=== PATIENT | male | born 1975 | race Caucasian/White ===

== ENCOUNTER → 2017-11-03 | Outpatient (CLI) | payer OTHER | LOC: M.ULTRA 14:00 | DX: N63.10 Unspecified lump in the right breast, unspecified quadrant (principal); L53.9 Erythematous condition, unspecified ==

== ENCOUNTER → 2018-09-09 | Outpatient (CLI) | payer OTHER | LOC: M.RAD 14:50 | DX: M16.11 Unilateral primary osteoarthritis, right hip (principal); M47.27 Other spondylosis with radiculopathy, lumbosacral region; M53.3 Sacrococcygeal disorders, not elsewhere classified; M25.78 Osteophyte, vertebrae; M79.604 Pain in right leg ==

== ENCOUNTER → 2018-10-19 | Outpatient (CLI) | payer OTHER | LOC: M.MRI 09-17 07:30 | DX: M16.11 Unilateral primary osteoarthritis, right hip (principal); G89.29 Other chronic pain; F17.200 Nicotine dependence, unspecified, uncomplicated; Z72.89 Other problems related to lifestyle; Z79.899 Other long term (current) drug therapy; Z68.30 Body mass index [BMI] 30.0-30.9, adult ==

== ENCOUNTER 2020-03-05 06:49 | Emergency (ER) | payer OTHER ==
[~2020-03-05] VITALS: Ht 182.9 cm; Wt 97.5 kg
[~2020-03-05 06:49] MED LIST: ASPIR 8181 MG PO; CARVEDILOL3.125 MG PO; COZAAR 50 MG TA50 M1 PO; EFFIENT10 MG PO; LIPITOR 40 MG T40 M1 PO; NITROGLYCERIN0.4 MG SUBLING
[2020-03-05] MEDS ORDERED: CARVEDILOL6.25 M1 PO (07:00)
[2020-03-05] MEDS ORDERED: LIPITOR10 MG PO (07:00)
[2020-03-05 07:18] LABS: ABSOLUTE BASOPHILS 0.1 thou/uL (0.0-0.2); ABSOLUTE EOSINOPHILS 0.2 thou/uL (0.0-0.7); ABSOLUTE LYMPHOCYTES 2.2 thou/uL (0.8-5.3); ABSOLUTE MONOCYTES 0.4 thou/uL (0.0-1.2); ABSOLUTE NEUTROPHILS 3.1 thou/uL (1.6-8.1); BASOPHILS 0.9 %; EOSINOPHILS 2.7 %; HEMATOCRIT 43.7 % (42.0-52.0); HEMOGLOBIN 15.1 gm/dL (14.0-18.0); LYMPHOCYTES 37.3 %; MCH 33.6 pg (26.0-34.0); MCHC 34.5 g/dL (28.0-37.0); MCV 97.3 fL (80.0-100.0); MONOCYTES 7.1 %; MPV 7.9 fl. (7.2-11.1); NUCLEATED RBCS 0 /100WBC; PLATELET COUNT* 178 thou/uL (150-400); RBC 4.49 mil/uL (4.50-6.00); RDW-CV 12.4 % (10.5-14.5); WBC 5.9 thou/uL (4.0-11.0)
[2020-03-05 07:24] LABS: POTASSIUM 4.2 mmol/L (3.5-5.1)
[2020-03-05 07:34] LABS: ALBUMIN 3.9 g/dL (3.4-5.0); TOTAL BILIRUBIN 0.4 mg/dL (<0.1-1.0); TOTAL PROTEIN 7.3 g/dL (6.4-8.2)
[2020-03-05] MEDS ORDERED: FLEXERIL PO ×2 (09:35→09:38)
[2020-03-05 10:27] VITALS: BP 110/70
--- NOTE | 2020-03-05 16:43 | EKG ---
[place] [address] ELECTROCARDIOGRAM REPORT Name: KERVIN WU Room: [facility]#: [id number] Admission: 03/05/20 Attend Phys: Discharge: Date of : 73 Date of Service: 03/05/20 0652 Report #: [id number] THIS REPORT FOR: //name// [facility] ED Test Date: 2020-03-05 Test Time: 06:52:52 Pat Name: KERVIN WU Department: Room: [facility] Gender: Distribution Operations Manager: FELICITA : 1975 Requested By: Amberly Loco Order Number: [id number] MD: Chandler iKng Measurements Intervals [place] Rate: 69 P: 32 MS: 186 QRS: 95 QRSD: 110 T: 96 QT: 410 QTc: 440 Interpretive Statements Sinus rhythm Anterolateral infarct, age indeterminate Abnormal T, consider ischemia, lateral leads Minimal ST elevation, inferior leads No previous ECG available for comparison Electronically Signed On 03-05-2020 16:43:35 INDUSTRIAL MAINTENANCE TECH by Chandler King [email or web address] <ELECTRONICALLY SIGNED> By: Chandler King MD, [facility] 03/05/20 1643 [id number] [id number] Chandler King MD, [facility] /EPI
== END 2020-03-05 10:28 | disposition home or self-care (01) ==
LOC: M.ERS 06:49 → M.TBA-ER 08:35 → M.ERS 08:35 → M.TBA-ER 08:35 → M.ERS 10:28
PROVIDERS: Personal Emergency Response Attendant
DX: S29.011A Strain of muscle and tendon of front wall of thorax, initial encounter (principal); Z20.828 Contact with and (suspected) exposure to other viral communicable diseases; I25.2 Old myocardial infarction; Z79.82 Long term (current) use of aspirin; Z79.899 Other long term (current) drug therapy; Z95.5 Presence of coronary angioplasty implant and graft; X50.1XXA Overexertion from prolonged static or awkward postures, initial encounter; Y93.53 Activity, golf; Y92.89 Other specified places as the place of occurrence of the external cause; Y99.9 Unspecified external cause status

== ENCOUNTER → 2020-08-29 | Outpatient (CLI) | payer OTHER ==
[~2020-08-29] MED LIST changes: +CARVEDILOL6.25 M1 PO; +FLEXERIL PO; +LIPITOR10 MG PO
== END ==
LOC: M.RAD 12:12
PROVIDERS: ATTEND Internal Medicine
DX: M19.071 Primary osteoarthritis, right ankle and foot (principal); M77.31 Calcaneal spur, right foot; M79.89 Other specified soft tissue disorders